=== PATIENT | male | born 2000 | race Caucasian/White ===

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

== ENCOUNTER 2018-07-03 18:54 | Emergency (ER) | payer OTHER ==
[~2018-07-03] VITALS: Ht 172.7 cm; Wt 115.6 kg
[~2018-07-03 18:54] MED LIST changes: +IBUP-1561 PO; +ONDA4TAB14 PO
[2018-07-03 19:47] VITALS: Ht 172.7 cm; Wt 115.6 kg
--- NOTE | 2018-07-04 04:46 | ERD ---
ER Documentation Chief Complaint Chief Complaint CP x2 wks w/ back pain/numbness in arm. hx of DM,ran out of insulin 2 days HPI This is a 18-year-old male comes in with chest pain on and off for the past 2 weeks with back pain and numbness in his arm. Denies any history of diabetes denies any management of his insulin about 4 days ago. He says chest pain happens when he gets very anxious. He said he has been under significant amount of life stress. He said pain is moderate. He also complains of bilateral hand paresthesias and perioral paresthesias as well when he has chest pain. Also complains of palpitations. Any nausea vomiting fevers or chills. Denies any other current complaints. ROS All systems reviewed and are negative except as per history of present illness. Medications Home Meds Active Scripts Ondansetron (Ondansetron Odt) 4 Mg Tab.rapdis, 4 MG PO Q6H PRN for NAUSEA AND/OR VOMITING, #10 TAB Prov:GLADIS LAWSON PA-C 05/01/18 Ibuprofen* (Motrin*) 400 Mg Tab, 400 MG PO Q6H for PAIN, #30 TAB Prov:NEFTALY RAYMOND 04/20/16 Amox Tr/Potassium Clavulanate (Amox Tr-K Clv 875-125 Mg Tab) 1 Tab Tablet, 1 TAB PO BID, #20 TAB Prov:AUBREY SHAW 11/10/15 Ibuprofen* (Motrin*) 600 Mg Tab, 600 MG PO Q6, #30 TAB Prov:AUBREY SHAW 11/10/15 Reported Medications Benzoyl Peroxide (Benzoyl Peroxide) Unknown Strength Gel..gm., 1 UNITS TP DAILY APPLY 1UNITS GEL/JELLY DAILY ON THE FACE LESIONS 11/09/15 Ketoconazole* (Nizoral*) 2%-30 Gm Cream..g., 1 UNITS TOP BID for CHEST RASH, TUB 11/09/15 Clotrimazole-Betamet Diprop* (Lotrisone*) 45 Gm Cream.gm., 1 APPLIC TOP BID, TUB APPLY ONE UNIT CREAM TWICE A DAY ON RIGHT EAR LESION 11/09/15 Allergies Allergies: Coded Allergies: No Known Allergy (Verified , 11/09/15) PMhx/Soc History of Surgery: No Anesthesia Reaction: No Hx Neurological Disorder: No Hx Respiratory Disorders: No Hx Cardiac Disorders: Yes (high cholesterol ) Hx Psychiatric Problems: Yes (Depression.) Hx Miscellaneous Medical Probl: No Hx Alcohol Use: Yes Hx Substance Use: Yes Hx Tobacco Use: Yes Smoking Status: Light tobacco smoker Physical Exam Vitals Vital Signs Date Temp Pulse Resp B/P (MAP) Pulse Ox O2 O2 Flow FiO2 Time Delivery Rate 07/04/18 78 16 143/83 100 Room Air 02:45 (103) 07/03/18 98.2 95 16 154/73 97 19:47 (100) Physical Exam Const: No acute distress Head: Atraumatic Eyes: Normal Conjunctiva ENT: Normal External Ears, Nose and Mouth. Neck: Full range of motion. No meningismus. Resp: Clear to auscultation bilaterally Cardio: Regular rate and rhythm, no murmurs Abd: Soft, non tender, non distended. Normal bowel sounds Skin: No petechiae or rashes Back: No midline or flank tenderness Ext: No cyanosis, or edema Neur: Awake and alert Psych: Normal Mood and Affect Result Diagram: 07/04/18 0301 07/04/18 0301 Results 24 hrs Laboratory Tests Test 07/03/18 19:51 07/04/18 02:06 07/04/18 03:01 Bedside Glucose 389 mg/dL 258 mg/dL White Blood Count 8.4 10^3/ul Red Blood Count 6.37 10^6/ul Hemoglobin 17.1 g/dl Hematocrit 48.2 % Mean Corpuscular Volume 75.7 fl Mean Corpuscular Hemoglobin 26.8 pg Mean Corpuscular Hemoglobin Concent 35.5 g/dl Red Cell Distribution Width 12.5 % Platelet Count 267 10^3/UL Mean Platelet Volume 10.0 fl Immature Granulocytes % 0.200 % Neutrophils % 49.5 % Lymphocytes % 39.8 % Monocytes % 6.7 % Eosinophils % 3.1 % Basophils % 0.7 % Nucleated Red Blood Cells % 0.0 /100WBC Immature Granulocytes # 0.020 10^3/ul Neutrophils # 4.2 10^3/ul Lymphocytes # 3.3 10^3/ul Monocytes # 0.6 10^3/ul Eosinophils # 0.3 10^3/ul Basophils # 0.1 10^3/ul Nucleated Red Blood Cells # 0.0 10^3/ul Sodium Level 140 mmol/L Potassium Level 4.1 mmol/L Chloride Level 105 mmol/L Carbon Dioxide Level 25 mmol/L Anion Gap 10 Blood Urea Nitrogen 14 mg/dl Creatinine 0.52 mg/dl Est Glomerular Filtrat Rate mL/min > 60 mL/min Glucose Level 233 mg/dl Calcium Level 9.5 mg/dl Total Bilirubin 0.4 mg/dl Direct Bilirubin 0.00 mg/dl Indirect Bilirubin 0.4 mg/dl Aspartate Amino Transf (AST/SGOT) 30 IU/L Alanine Aminotransferase (ALT/SGPT) 52 IU/L Alkaline Phosphatase 85 IU/L Troponin I < 0.012 ng/ml B-Type Natriuretic Peptide 16 PG/ML Total Protein 7.5 g/dl Albumin 4.3 g/dl Globulin 3.20 g/dl Albumin/Globulin Ratio 1.34 Procedures/MDM EKG: Rate/Rhythm: [Normal Sinus Rhythm] QRS, ST, T-waves: [No changes consistent w/ acute ischemia], normal intervals, upgoing T waves, normal axis Impression: [No evidence of ischemia or arrhythmia] Chest X-ray 1V Interpreted by me: Soft Tissue: No acute abnormalities Bones: No acute abnormalities Mediastinum/Cardiac Silhouette/Lungs: [No acute abnormalities] Medical decision making: Patient's thoracic symptoms have stabilized while in th e department and are stable for outpatient follow up. Exam and work up not consistent w/ ischemia, arrhythmia, PE or dissection. Patient will also be given a refill of his insulin. Asked to follow-up with primary care physician. Return for any return of chest pain. Departure Diagnosis: Primary Impression: Chest pain Chest pain type: unspecified Qualified Codes: R07.9 - Chest pain, unspeci fied Additional Impression: Hyperglycemia Condition: Stable AUBREY SHAW Jul 04, 2018 04:45
[2018-07-04] MEDS ORDERED: LANT3I SC (04:49)
[2018-07-04 05:11] VITALS: BP 138/71; PULSE 86; RESP 18
== END 2018-07-04 05:14 | disposition home or self-care (01) ==
LOC: E/R 18:54
DX: R07.9 Chest pain, unspecified (principal); F17.210 Nicotine dependence, cigarettes, uncomplicated; R73.9 Hyperglycemia, unspecified
CPT/HCPCS: 36415; 71045; 80053; 82962; 83880; 84484; 85025; 93005; Z7502

== ENCOUNTER 2018-08-21 14:21 | Emergency (ER) | payer OTHER ==
[~2018-08-21] VITALS: Ht 185.4 cm; Wt 111.2 kg
[~2018-08-21 14:21] MED LIST changes: +LANT3I SC
[2018-08-21 15:06] VITALS: BP 134/81; PULSE 82; RESP 20; Ht 185.4 cm; Wt 111.2 kg
--- NOTE | 2018-08-21 15:22 | EN ---
Date/Time of Note Date/Time of Note DATE: 08/21/18 TIME: 15:21 ER Progress Note Quick RME note: Medical screening exam was initiated and lab/imaging studies were ordered. Patient will be seen in ED 2 by another provider. HPI: 18-year-old male who presents the ER for concerns of penile irritation for the last 3 weeks. Patient states he did go to [facility] and he was given clotrimazole and a steroid cream for concerns of balanitis. He states that his penile opening continues to be erythematous and sore. Patient states he was tested for STDs and he does not have any. Patient does report dysuria. Orders placed: POC Urine dip MANINDER DE LA CRUZ PA-C August 21, 2018 15:22
[2018-08-21] MEDS ORDERED: CLOT30CR24 TOP (16:41)
[2018-08-21] MEDS ORDERED: MUPI22OI2 TOP (16:41)
[2018-08-21] MEDS ORDERED: HC30CR25 TOP (16:41)
--- NOTE | 2018-08-25 13:34 | ERD ---
ER Documentation Chief Complaint Chief Complaint c/o dryness of penile foreskin to the point "it hurts to pee" HPI 18-year-old male presents with complaint of swelling and redness to the foreskin for the past 3 weeks. States that he went to another provider and was prescribed clotrimazole with betamethasone. States that the medication has not been working and there is still inflammation or redness. States that he is also been cleaning of the foreskin. States that he is able to retract foreskin. Denies any hematuria, abodminal pain, dehydration, polyuria, polydipsia, testicular pain, penile discharge, fevers. History of diabetes. ROS All systems reviewed and are negative except as per history of present illness. Medications Home Meds Active Scripts Clotrimazole* (Clotrimazole* AF) 1% - 30 Gm Cream.gm., 1 APPLIC TOP BID for balanoposhitis for 7 Days, TUB Prov:AUBREY FRAGA 08/21/18 Mupirocin* (Bactroban*) 2% -22 Gram Oint...g., 1 APPLIC TOP BID for 7 Days, EA Prov:AUBREY FRAGA 08/21/18 Hydrocortisone* Topical (Hydrocortisone* Topical) 2.5%-28.3 Gm Cream..g., 1 APPLIC TOP BID for balanopothitis, #1 TUB Prov:AUBREY FRAGA 08/21/18 Insulin Glargine* (Lantus*) 100 Unit/Ml Soln, 15 UNIT SC DAILY, #1 VIAL Prov:AUBREY SHAW 07/04/18 Ondansetron (Ondansetron Odt) 4 Mg Tab.rapdis, 4 MG PO Q6H PRN for NAUSEA AND/OR VOMITING, #10 TAB Prov:GLADIS LAWSON PA-C 05/01/18 Ibuprofen* (Motrin*) 400 Mg Tab, 400 MG PO Q6H for PAIN, #30 TAB Prov:NEFTALY RAYMOND 04/20/16 Amox Tr/Potassium Clavulanate (Amox Tr-K Clv 875-125 Mg Tab) 1 Tab Tablet, 1 TAB PO BID, #20 TAB Prov:AUBREY SHAW 11/10/15 Ibuprofen* (Motrin*) 600 Mg Tab, 600 MG PO Q6, #30 TAB Prov:AUBREY SHAW 11/10/15 Reported Medications Benzoyl Peroxide (Benzoyl Peroxide) Unknown Strength Gel..gm., 1 UNITS TP DAILY APPLY 1UNITS GEL/JELLY DAILY ON THE FACE LESIONS 11/09/15 Ketoconazole* (Nizoral*) 2%-30 Gm Cream..g., 1 UNITS TOP BID for CHEST RASH, TUB 11/09/15 Clotrimazole-Betamet Diprop* (Lotrisone*) 45 Gm Cream.gm., 1 APPLIC TOP BID, TUB APPLY ONE UNIT CREAM TWICE A DAY ON RIGHT EAR LESION 11/09/15 Allergies Allergies: Coded Allergies: No Known Allergy (Verified , 11/09/15) PMhx/Soc History of Surgery: No Anesthesia Reaction: No Hx Neurological Disorder: No Hx Respiratory Disorders: No Hx Cardiac Disorders: Yes (high cholesterol ) Hx Psychiatric Problems: Yes (Depression) Hx Miscellaneous Medical Probl: No Hx Alcohol Use: Yes (SOCIALLY) Hx Substance Use: Yes (MARIJUANA ) Hx Tobacco Use: Yes (SOCIALLY) Smoking Status: Current every day smoker FmHx Family History: No diabetes, No coronary disease, No other Physical Exam Vitals Vital Signs Date Temp Pulse Resp B/P (MAP) Pulse Ox O2 O2 Flow FiO2 Time Delivery Rate 08/21/18 99.1 82 20 134/81 96 15:06 (98) Physical Exam Const: No acute distress Head: Atraumatic Eyes: Normal Conjunctiva ENT: Normal External Ears, Nose and Mouth. Neck: Full range of motion. No meningismus. Resp: Clear to auscultation bilaterally Cardio: Regular rate and rhythm, no murmurs Abd: Soft, non tender, non distended. Normal bowel sounds Skin: No petechiae or rashes Back: No midline or flank tenderness Ext: No cyanosis, or edema Neur: Awake and alert Psych: Normal Mood and Affect : Foreskin is erythematous and edematous. Foreskin is retractable. No evidence of phimosis or paraphimosis. Glans is also erythematous and moderately edematous. There is no penile discharge noted. Testicles are non-edematous or tender to palpation with normal lay. Scrotum is not edematous or erythematous. Result Diagram: 08/21/18 1703 08/21/18 1703 Results 24 hrs Laboratory Tests Test 08/21/18 16:51 08/21/18 17:03 Bedside Urine pH (LAB) 5.0 Bedside Urine Protein (LAB) 3+ Bedside Urine Glucose (UA) 0.50% Bedside Urine Ketones (LAB) 4+ Bedside Urine Blood Trace-lysed Bedside Urine Nitrite (LAB) Negative Bedside Urine Leukocyte Esterase (L Negative White Blood Count 7.4 10^3/ul Red Blood Count 5.91 10^6/ul Hemoglobin 15.8 g/dl Hematocrit 45.0 % Mean Corpuscular Volume 76.1 fl Mean Corpuscular Hemoglobin 26.7 pg Mean Corpuscular Hemoglobin Concent 35.1 g/dl Red Cell Distribution Width 12.8 % Platelet Count 268 10^3/UL Mean Platelet Volume 10.0 fl Immature Granulocytes % 0.700 % Neutrophils % 58.7 % Lymphocytes % 32.5 % Monocytes % 5.0 % Eosinophils % 2.4 % Basophils % 0.7 % Nucleated Red Blood Cells % 0.4 /100WBC Immature Granulocytes # 0.050 10^3/ul Neutrophils # 4.3 10^3/ul Lymphocytes # 2.4 10^3/ul Monocytes # 0.4 10^3/ul Eosinophils # 0.2 10^3/ul Basophils # 0.1 10^3/ul Nucleated Red Blood Cells # 0.0 10^3/ul Sodium Level 139 mmol/L Potassium Level 4.5 mmol/L Chloride Level 103 mmol/L Carbon Dioxide Level 24 mmol/L Anion Gap 12 Blood Urea Nitrogen 12 mg/dl Creatinine 0.57 mg/dl Est Glomerular Filtrat Rate mL/min > 60 mL/min Glucose Level 295 mg/dl Calcium Level 9.6 mg/dl Total Bilirubin 0.7 mg/dl Direct Bilirubin 0.00 mg/dl Indirect Bilirubin 0.7 mg/dl Aspartate Amino Transf (AST/SGOT) 43 IU/L Alanine Aminotransferase (ALT/SGPT) 41 IU/L Alkaline Phosphatase 97 IU/L Total Protein 7.6 g/dl Albumin 4.7 g/dl Globulin 2.90 g/dl Albumin/Globulin Ratio 1.62 Procedures/MDM MDM: Patient's presentation is consistent with balanoposthitis. Since patient was already prescribed a low-dose steroid with clotrimazole and this combination is not been working, decision was made to treat with higher potency steroid along with mupirocin for possible bacterial etiology. Patient also advised to continue on the clotrimazole in case of fungal etiology. In addition, patient was advised that his glucose was high and he would need to see his primary care to adju his diabetic medications. st patient understood and agreed. I have low suspicion for DKA, HSS, paraphimosis, phimosis, testicular torsion, or any other emergent condition. Patient advised that if this combination of medications does not work he needs to see urologist. Patient understood and agreed. Patient discharged with strict ER precautions. Patient advised to follow up with PMD. All questions answered at discharge. Departure Diagnosis: Primary Impression: Balanoposthitis Additional Impression: Hyperglycemia Condition: Stable Patient Instructions: Balanoposthitis Referrals: [facility] YOU HAVE RECEIVED A MEDICAL SCREENING EXAM AND THE RESULTS INDICATE THAT YOU DO NOT HAVE A CONDITION THAT REQUIRES URGENT TREATMENT IN THE EMERGENCY DEPARTMENT. FURTHER EVALUATION AND TREATMENT OF YOUR CONDITION CAN WAIT UNTIL YOU ARE SEEN IN YOUR DOCTORS OFFICE WITHIN THE NEXT 1-2 DAYS. IT IS YOUR RESPONSIBILITY TO MAKE AN APPOINTMENT FOR FOLOW-UP CARE. IF YOU HAVE A PRIMARY DOCTOR --you should call your primary doctor and schedule an appointment IF YOU DO NOT HAVE A PRIMARY DOCTOR YOU CAN CALL OUR PHYSICIAN REFERRAL HOTLINE AT IF YOU CAN NOT AFFORD TO SEE A PHYSICIAN YOU CAN CHOSE FROM THE FOLLOWING [facility] [address] [facility]. [facility] [address] [facility] [facility] [address] [facility] [address] [facility]. [facility] [address] [facility]. [facility]. [address] Additional Instructions: FOLLOW UP WITH YOUR PRIMARY CARE PHYSICIAN TOMORROW.Return to this facility if you are not improving as expected. AUBREY FRAGA August 25, 2018 13:34
== END 2018-08-21 18:38 | disposition home or self-care (01) ==
LOC: FTE 14:21
DX: N47.6 Balanoposthitis (principal); R73.9 Hyperglycemia, unspecified; Z79.4 Long term (current) use of insulin
CPT/HCPCS: 80053; 81003; 85025; 99283

== ENCOUNTER 2018-10-29 01:19 | Emergency (ER) | payer OTHER ==
[~2018-10-29] VITALS: Ht 175.3 cm; Wt 106.5 kg
[~2018-10-29 01:19] MED LIST changes: +CLOT30CR24 TOP; +HC30CR25 TOP; +MUPI22OI2 TOP
[2018-10-29 01:23] VITALS: Ht 175.3 cm; Wt 106.5 kg
--- NOTE | 2018-10-29 02:57 | ERD ---
ER Documentation Chief Complaint Chief Complaint CWP ON/OFF FOR "WEEKS" NO SOB; HX OF DM HPI 18-year-old male with history of anxiety and depression presents with complaint of left-sided chest wall pain for the past several weeks. States that the pain is intermittent and exacerbated with certain movements of his arm. Denies any history of trauma or injury. Denies SOB, dyspnea, lower extremity swelling or pain, pain on exertion, diaphoresis, nausea, radiating of pain, recent travel or immobilization, hemoptysis, dsypnea, history of clotting disorder, syncope, fever, or cough. ROS All systems reviewed and are negative except as per history of present illness. Medications Home Meds Active Scripts Ibuprofen* (Motrin*) 600 Mg Tab, 600 MG PO Q6, #30 TAB Prov:AUBREY FRAGA 10/29/18 Clotrimazole* (Clotrimazole* AF) 1% - 30 Gm Cream.gm., 1 APPLIC TOP BID for balanoposhitis for 7 Days, TUB Prov:AUBREY FRAGA 08/21/18 Mupirocin* (Bactroban*) 2% -22 Gram Oint...g., 1 APPLIC TOP BID for 7 Days, EA Prov:AUBREY FRAGA 08/21/18 Hydrocortisone* Topical (Hydrocortisone* Topical) 2.5%-28.3 Gm Cream..g., 1 APPLIC TOP BID for balanopothitis, #1 TUB Prov:AUBREY FRAGA 08/21/18 Insulin Glargine* (Lantus*) 100 Unit/Ml Soln, 15 UNIT SC DAILY, #1 VIAL Prov:AUBREY SHAW 07/04/18 Ondansetron (Ondansetron Odt) 4 Mg Tab.rapdis, 4 MG PO Q6H PRN for NAUSEA AND/OR VOMITING, #10 TAB Prov:GLADIS LAWSON PA-C 05/01/18 Ibuprofen* (Motrin*) 400 Mg Tab, 400 MG PO Q6H for PAIN, #30 TAB Prov:NEFTALY RAYMOND 04/20/16 Amox Tr/Potassium Clavulanate (Amox Tr-K Clv 875-125 Mg Tab) 1 Tab Tablet, 1 TAB PO BID, #20 TAB Prov:AUBREY SHAW 11/10/15 Ibuprofen* (Motrin*) 600 Mg Tab, 600 MG PO Q6, #30 TAB Prov:AUBREY SHAW 11/10/15 Reported Medications Benzoyl Peroxide (Benzoyl Peroxide) Unknown Strength Gel..gm., 1 UNITS TP DAILY APPLY 1UNITS GEL/JELLY DAILY ON THE FACE LESIONS 11/09/15 Ketoconazole* (Nizoral*) 2%-30 Gm Cream..g., 1 UNITS TOP BID for CHEST RASH, TUB 11/09/15 Clotrimazole-Betamet Diprop* (Lotrisone*) 45 Gm Cream.gm., 1 APPLIC TOP BID, TUB APPLY ONE UNIT CREAM TWICE A DAY ON RIGHT EAR LESION 11/09/15 Allergies Allergies: Coded Allergies: No Known Allergy (Verified , 11/09/15) PMhx/Soc History of Surgery: No Anesthesia Reaction: No Hx Neurological Disorder: No Hx Respiratory Disorders: No Hx Cardiac Disorders: Yes (high cholesterol ) Hx Psychiatric Problems: Yes (Depression, Anxiety) Hx Miscellaneous Medical Probl: No Hx Alcohol Use: Yes (SOCIALLY) Hx Substance Use: Yes (MARIJUANA ) Hx Tobacco Use: Yes (6 months ago) Smoking Status: Former smoker FmHx Family History: No diabetes, No coronary disease, No other Physical Exam Vitals Vital Signs Date Temp Pulse Resp B/P (MAP) Pulse Ox O2 O2 Flow FiO2 Time Delivery Rate 10/29/18 97.5 103 19 144/78 97 01:23 (100) Physical Exam Const: No acute distress Head: Atraumatic Eyes: Normal Conjunctiva ENT: Normal External Ears, Nose and Mouth. Neck: Full range of motion. No meningismus. Resp: Clear to auscultation bilaterally. No tenderness palpation of the anterior chest wall. No bony deformities noted. No masses noted. Cardio: Regular rate and rhythm, no murmurs Abd: Soft, non tender, non distended. Normal bowel sounds Skin: No petechiae or rashes Back: No midline or flank tenderness Ext: No cyanosis, or edema Neur: Awake and alert Psych: Normal Mood and Affect Results 24 hrs Laboratory Tests Test 10/29/18 03:22 Troponin I < 0.012 ng/ml Procedures/MDM MDM: EKG, chest x-ray, troponin were all ordered. Results within normal limits aside from small density found on chest x-ray. This was discussed with patient and I advised patient to take the results of the chest x-ray to his primary care physician.. Patient's chest pain is most likely musculoskeletal. Patient given Rx for ibuprofen. I have low suspicition for acute coronary syndrome, pulmonary embolism, aortic dissection, AAA, pneumothorax, esophageal rupture, pericarditis, myocarditis, or pneumonia based on EKG, imaging, labs, patient history and exam. Patient discharged with strict ER precautions. Patient advised to follow up with PMD. All questions answered at discharge. At this time, patient is stable for discharge and outpatient management. I have instructed the patient to follow-up with his/her primary care physician in 1-2 days. I have discussed with the patient the possibility of needing to see a specialist for further workup and imaging studies if symptoms persist. I have instructed the patient to promptly return to the ER for any new or worsening symptoms including but not limited to increased pain, fever, nausea, vomiting, weakness or LOC. The patient and/or family expressed understanding of and agreement with this plan. All questions were answered. Home care instructions were provided. DISCLAIMER: Inadvertent spelling and grammatical errors are likely due to EHR/dictation software use and do not reflect on the overall quality of patient care. Also, please note that the electronic time recorded on this note does not necessarily reflect the actual time of the patient encounter. Departure Diagnosis: Primary Impression: Chest wall pain Condition: Stable AUBREY FRAGA Oct 29, 2018 02:57
[2018-10-29 04:44] VITALS: BP 131/75; PULSE 79; RESP 18
== END 2018-10-29 04:44 | disposition home or self-care (01) ==
LOC: FTE 01:19
DX: R07.89 Other chest pain (principal); E11.9 Type 2 diabetes mellitus without complications; Z79.4 Long term (current) use of insulin; Z87.891 Personal history of nicotine dependence
CPT/HCPCS: 36415; 71045; 84484; 93005